=== PATIENT | male | born 1960 | race Caucasian/White ===

== ENCOUNTER → 2017-07-27 | Outpatient (REF) | payer BC ==
[~2017-07-27] MED LIST: ASPI1TAB PO; ATOR40TA75 PO; CYCL10TA PO; LISI2.5T76 PO; METO1TAB32 PO; OMEP20CA3 PO; PRED20TA PO
== END ==
LOC: M LAB REF 21:20
PROVIDERS: ATTEND Physician Assistant
DX: J02.9 Acute pharyngitis, unspecified (principal)

== ENCOUNTER → 2017-08-29 | Outpatient (CLI) | payer BC | LOC: M WUC 17:24 | DX: S61.301A Unspecified open wound of left index finger with damage to nail, initial encounter (principal); X58.XXXA Exposure to other specified factors, initial encounter; Y92.89 Other specified places as the place of occurrence of the external cause; Y93.89 Activity, other specified; Y99.8 Other external cause status | CPT/HCPCS: 73140 ==

== ENCOUNTER → 2018-09-03 | Outpatient (REF) | payer BC | LOC: M LAB REF 16:22 | PROVIDERS: ATTEND Nurse Practitioner Family | DX: R68.82 Decreased libido (principal) ==

== ENCOUNTER 2018-09-10 18:48 | Emergency (ER) | payer BC ==
[~2018-09-10] VITALS: Ht 177.8 cm; Wt 88.2 kg
[2018-09-10] MEDS ORDERED: NS 1,000 ML IV ONE (19:30)
[2018-09-10] MEDS ORDERED: GI COCKTAIL 50ML BTL(HYOSCYAMINE/MAALOX/LIDOCAINE VISCOUS)(1:3:1) PO ONE (19:30)
[2018-09-10] MEDS ORDERED: ASPIRIN 81 MG CHEW TABLET PO ONE (19:30)
[2018-09-10 19:38] LABS: BASO # 0.1 10^3/uL (0.0-0.2); BASO % 0.5 % (0.0-1.0); EOS # 0.1 10^3/uL (0.0-0.50); HEMATOCRIT 47.5 % (42.0-52.0); HEMOGLOBIN 16.8 g/dl (13.5-17.5); LYMPH # 3.4 10^3/uL (1.5-4.5); LYMPH % 30.6 % (24.0-44.0); MEAN CORPUSCULAR HEMOGLOBIN 30.3 pg (27.0-33.0); MEAN CORPUSCULAR HGB CONC 35.4 g/dl (32.0-36.5); MEAN CORPUSCULAR VOLUME 85.7 fl (80.0-96.0); MONO # 0.9 10^3/uL (0.0-0.8); MONO % 7.7 % (0.0-5.0); NEUTROPHILS # 6.6 10^3/uL (1.8-7.7); NEUTROPHILS % 59.7 % (36.0-66.0); PLATELET COUNT, AUTOMATED 273 10^3/uL (150-450); RED BLOOD COUNT 5.54 10^6/uL (4.30-6.10); WHITE BLOOD COUNT 11.1 10^3/uL (4.0-10.0)
[2018-09-10 19:48] LABS: INR 0.96; PROTHROMBIN TIME 12.9 SECONDS (12.1-14.4)
[2018-09-10 19:49] LABS: BLOOD UREA NITROGEN 20 MG/DL (7-18); CALCIUM LEVEL 8.7 MG/DL (8.5-10.1); CARBON DIOXIDE LEVEL 24 MEQ/L (21-32); CHLORIDE LEVEL 107 MEQ/L (98-107); CPK CREATINE PHOSPHOKINASE 104 U/L (39-308); CREATININE FOR GFR 1.07 MG/DL (0.70-1.30); GLOMERULAR FILTRATION RATE > 60.0 (>56); GLUCOSE, FASTING 116 MG/DL (70-100); MB/CK RELATIVE INDEX 1.63 (< OR =4); POTASSIUM SERUM 3.7 MEQ/L (3.5-5.1); SODIUM LEVEL 141 MEQ/L (136-145); TROPONIN I < 0.02 NG/ML (< 0.10)
[2018-09-10 20:03] VITALS: BP 145/88
--- NOTE | 2018-09-10 20:03 | REP ---
Portable chest x-ray: Single view. History: Chest pain. Comparison study: May 26, 2016. Findings: The patient is status post prior median sternotomy. There is a granulomatous calcification in the left apex. EKG electrodes are seen. The heart is not enlarged. The lung vinson are otherwise clear. The pleural angles are sharp. Pulmonary vasculature is not increased. Impression: No active disease. Electronically Signed by Brendan Masters MD 09/10/2018 07:54 P
--- NOTE | 2018-09-11 07:58 | ECGEPIP ---
Stationary ECG Study 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
== END 2018-09-10 20:17 | disposition home or self-care (01) ==
LOC: M ED 18:48
DX: B34.9 Viral infection, unspecified (principal); I10 Essential (primary) hypertension; I25.10 Atherosclerotic heart disease of native coronary artery without angina pectoris; Z79.899 Other long term (current) drug therapy; Z79.82 Long term (current) use of aspirin

== ENCOUNTER 2019-09-02 21:10 | Emergency (ER) | payer BC ==
[~2019-09-02] VITALS: Ht 177.8 cm; Wt 88.6 kg
[~2019-09-02 21:10] MED LIST changes: -ASPI1TAB PO; +ASPI81TA26 PO; +OMEP-172 PO; -OMEP20CA3 PO
[2019-09-02 21:11] VITALS: BP 150/83
== END 2019-09-03 00:56 | disposition home or self-care (01) ==
LOC: M ED 21:10
DX: S61.442A Puncture wound with foreign body of left hand, initial encounter (principal); S60.512A Abrasion of left hand, initial encounter; W26.8XXA Contact with other sharp object(s), not elsewhere classified, initial encounter; Y92.099 Unspecified place in other non-institutional residence as the place of occurrence of the external cause; Y93.89 Activity, other specified; Y99.9 Unspecified external cause status; I25.2 Old myocardial infarction; I10 Essential (primary) hypertension; Z87.891 Personal history of nicotine dependence; Z79.82 Long term (current) use of aspirin; Z79.899 Other long term (current) drug therapy

== ENCOUNTER 2020-03-17 14:45 | Inpatient (IN) | payer BC ==
[~2020-03-17] VITALS: Ht 177.8 cm; Wt 85.3 kg
[~2020-03-17 14:45] MED LIST changes: +CYCL-707 PO; -CYCL10TA PO; -OMEP-172 PO; +OMEP1CAP73 PO
[2020-03-17] MEDS ORDERED: NS 1,000 ML IV SCH (15:31)
[2020-03-17 16:13] LABS: VENOUS BASE EXCESS -0.9 (-2.0-2.0); VENOUS O2 SATURATION 93.7 % (60.0-80.0); VENOUS PARTIAL PRESSURE CO2 41.1 mmHg (38.0-50.0); VENOUS PARTIAL PRESSURE O2 67.1 mmHg (30.0-50.0); VENOUS PH 7.385 UNITS (7.330-7.430); VENOUS STANDARD HCO3 23.6 MEQ/L; VENOUS TOTAL CO2 25.3 MEQ/L (24.0-28.0)
[2020-03-17 16:17] LABS: BASO # 0.1 10^3/uL (0.0-0.2); BASO % 0.6 % (0.0-1.0); EOS # 0.1 10^3/uL (0.0-0.5); EOS % 0.9 % (0.0-3.0); HEMATOCRIT 45.4 % (42.0-52.0); LYMPH # 1.8 10^3/uL (1.5-5.0); LYMPH % 20.3 % (24.0-44.0); MEAN CORPUSCULAR HEMOGLOBIN 27.5 pg (27.0-33.0); MEAN CORPUSCULAR VOLUME 83.2 fl (80.0-96.0); MONO # 0.6 10^3/uL (0.0-0.8); MONO % 6.4 % (0.0-5.0); NEUTROPHILS # 6.4 10^3/uL (1.5-8.5); NEUTROPHILS % 71.6 % (36.0-66.0); PLATELET COUNT, AUTOMATED 207 10^3/uL (150-450); RED BLOOD COUNT 5.46 10^6/uL (4.30-6.10); WHITE BLOOD COUNT 8.9 10^3/uL (4.0-10.0)
[2020-03-17] MEDS ORDERED: ACETAMINOPHEN TAB 650MG DOSE (2X325MG) PO PRN (16:45)
[2020-03-17 16:48] LABS: ACETAMINOPHEN LEVEL < 2.0 UG/ML (10.0-30.0); ALBUMIN 3.9 GM/DL (3.2-5.2); ALT/SGPT 38 U/L (12-78); BILIRUBIN,DIRECT 0.2 MG/DL (0.0-0.2); BILIRUBIN,TOTAL 0.7 MG/DL (0.2-1.0); BLOOD UREA NITROGEN 19 MG/DL (7-18); CALCIUM LEVEL 8.6 MG/DL (8.5-10.1); CARBON DIOXIDE LEVEL 26 MEQ/L (21-32); CHLORIDE LEVEL 109 MEQ/L (98-107); CK-MB VALUE MASS 2.2 NG/ML (<3.6); CPK CREATINE PHOSPHOKINASE 227 U/L (39-308); CREATININE FOR GFR 1.07 MG/DL (0.70-1.30); ETHYL ALCOHOL (ETHANOL) < 0.003 % (0.000-0.010); GLOMERULAR FILTRATION RATE > 60.0 (>56); GLUCOSE, FASTING 101 MG/DL (70-100); MB/CK RELATIVE INDEX 0.97 (< OR =4); POTASSIUM SERUM 3.8 MEQ/L (3.5-5.1); SALICYLATE LEVEL < 1.7 MG/DL (5.0-30.0); SODIUM LEVEL 143 MEQ/L (136-145); TOTAL PROTEIN 7.2 GM/DL (6.4-8.2); TROPONIN I < 0.02 NG/ML (< 0.10)
[2020-03-17] MEDS ORDERED: LISI2.5T2 PO (16:53)
[2020-03-17] MEDS ORDERED: OMEP10CA78 PO (16:53)
--- NOTE | 2020-03-17 17:07 | HPEPDOC ---
General Date of Admission 03/17/20 Date of Service: Mar 17, 2020 Chief Complaint The patient is a 59-year-old male admitted with a reason for visit of High B/P. Source: Patient Exam Limitations: No limitations Timing/Duration: 4-6 hours Severity: Mild History of Present Illness Patient is 59 years old male with past history of triple cardiac bypass, hyperlipidemia, hypertension presented to the hospital with altered mental status. Patient stated that around 5-6 hours ago he developed slight mental confusion, with short term memory problem and some difficulties to express his thoughts associated with bilateral paresthesia in his arms. His to blood pressure and it was slightly elevated 156/80. Patient denied any similar symptoms before. Patient denied any focal weakness, numbness. In emergency room patient was found to have negative head CT. patient denies fever, chills, nausea, vomiting, diarrhea or dysuria. When I saw patient NIH score 0 Home Medications Scheduled Aspirin (Aspirin EC) 81 Mg Tab, 162 MG PO DAILY, (Reported) Atorvastatin Calcium (Atorvastatin Calcium) 40 Mg Tab, 40 MG PO QPM, (Reported) Lisinopril (Lisinopril) 2.5 Mg Tab, 2.5 MG PO QPM, (Reported) Omeprazole (Omeprazole) 20 Mg Cap, 20 MG PO Q2D, (Reported) Allergies Coded Allergies: No Known Allergies (Unverified , 05/26/16) Past Medical History Medical History triple cardiac bypass, hyperlipidemia, hypertension, [place] Surgical History triple cardiac bypass Family History Father had cardiac bypass and coronary artery diseases Social History * Smoker: Denies Alcohol: Denies Drugs: denies A-FIB/CHADSVASC A-FIB History Current/History of A-Fib/PAF?: No Current PO Anticoag Therapy: No Review of Systems Constitutional: Denies: Chills, Fever Eyes: Denies: Pain, Vision change ENT: Denies: Head Aches, Ear Pain Skin: Denies: Rash, Lesions Pulmonary: Denies: Dyspnea Cardiovascular: Denies: Chest Pain, Palpitations Gastrointestinal: Denies: Nausea Genitourinary: Denies: Dysuria Hematologic: Denies: Bruising Endocrine: Denies: Polydipsia Musculoskeletal: Denies: Neck Pain Neurological: Reports: Confusion; Denies: Weakness Psych: Reports: Mood Normal Physical Examination General Exam: Positive: Alert, Cooperative Eye Exam: Positive: PERRLA ENT Exam: Positive: Atraumatic Neck Exam: Positive: Supple; Negative: JVD Chest Exam: Positive: Clear to auscultation Heart Exam: Positive: Rate Normal Telemetry: Positive: No significant arrhythmia Abdomen Exam: Positive: Normal bowel sounds Extremity Exam: Negative: Clubbing, Cyanosis Skin Exam: Positive: Nl turgor and temperature Neuro Exam: Positive: Strength at 5/5 X4 ext, Cranial Nerves 3-12 NL Psych Exam: Positive: Mental status NL, Oriented x 3, Other Vital Signs Vital Signs Date Time Temp Pulse Resp B/P (MAP) Pulse Ox O2 Delivery O2 Flow Rate FiO2 03/17/20 16:06 153/93 (113) 03/17/20 16:00 79 95 03/17/20 14:47 98.4 20 Room Air Laboratory Data Labs 24H Laboratory Tests 2 03/17/20 15:31: Blood Gas Bicarbonate Standard 23.6, Venous Blood pH 7.385, Venous Blood Partial Pressure CO2 41.1, Venous Blood Partial Pressure O2 67.1H, Venous Blood Total Carbon Dioxide 25.3, Venous Blood HCO3 24.0, Venous Blood Oxygen Saturation 93.7H, Venous Blood Base Excess -0.9 03/17/20 16:01: Anion Gap 8, Glomerular Filtration Rate > 60.0, Calcium Level 8.6, Total Bilirubin 0.7, Direct Bilirubin 0.2, Aspartate Amino Transf (AST/SGOT) 24, Alanine Aminotransferase (ALT/SGPT) 38, Alkaline Phosphatase 79, Total Creatine Kinase 227, Creatine Kinase MB 2.2, Creatine Kinase MB Relative Index 0.97, Troponin I < 0.02, Total Protein 7.2, Albumin 3.9, Albumin/Globulin Ratio 1.2, Thyroid Stimulating Hormone (TSH) 1.430, Salicylates Level < 1.7L, Acetaminophen Level < 2.0L, Ethyl Alcohol Level < 0.003 03/17/20 16:04: Immature Granulocyte % (Auto) 0.2, Neutrophils (%) (Auto) 71.6H, Lymphocytes (%) (Auto) 20.3L, Monocytes (%) (Auto) 6.4H, Eosinophils (%) (Auto) 0.9, Basophils (%) (Auto) 0.6, Neutrophils # (Auto) 6.4, Lymphocytes # (Auto) 1.8, Monocytes # (Auto) 0.6, Eosinophils # (Auto) 0.1, Basophils # (Auto) 0.1, Nucleated Red Blood Cells % (auto) 0.0 03/17/20 16:37: CBC/BMP Laboratory Tests 03/17/20 16:01 03/17/20 16:04 Assessment/Plan Patient is 59 years old male with past history of triple cardiac bypass, hyperlipidemia, hypertension presented to the hospital with altered mental status. Patient stated that around 5-6 hours ago he developed slight mental confusion, with short term memory problem and some difficulties to express his thoughts associated with bilateral paresthesia in his arms. His to blood pressure and it was slightly elevated 156/80. Patient denied any similar symptoms before. Patient denied any focal weakness, numbness. In emergency room patient was found to have negative head CT. patient denies fever, chills, nausea, vomiting, diarrhea or dysuria. When I saw patient NIH score 0 Problems (1) Altered mental state Status: Acute Problem Text: Differential diagnosis included TIA, CVA, presyncope Patient has multiple risk factors for stroke including coronary artery diseases, hyperlipidemia, hypertension Will proceed with MRI and MRA, carotid artery ultrasound Consider neurological consult after imaging studies done continue aspirin and statin (2) Coronary artery disease Status: Chronic Problem Text: Continue home cardioprotective medication Plan / VTE VTE Prophylaxis Ordered?: Yes DEVYN MADDEN DO Mar 17, 2020 17:07
[2020-03-17 17:17] LABS: AMPHETAMINES LEVEL URINE NEGATIVE (NEGATIVE); BARBITURATES URINE NEGATIVE (NEGATIVE); BENZODIAZEPINES URINE NEGATIVE (NEGATIVE); CANNABINOIDS URINE NEGATIVE (NEGATIVE); COCAINE METABOLITE URINE NEGATIVE (NEGATIVE); METHADONE URINE NEGATIVE (NEGATIVE); OPIATES URINE NEGATIVE (NEGATIVE); PHENCYCLIDINE URINE NEGATIVE (NEGATIVE)
[2020-03-17] MEDS: NS 1,000 ML IV SCH (18:29)
--- NOTE | 2020-03-17 20:03 | REPVR ---
PROCEDURE INFORMATION: Exam: MR Head Without Contrast Exam date and time: 03/17/2020 7:30 PM Age: 59 years old Clinical indication: Altered mental status/memory loss; Confusion or disorientation; Patient HX: Sudden onset of confusion, bilateral weakness, tingling, that has since subsided, nki; Additional info: CVA TECHNIQUE: Imaging protocol: MR of the head without contrast. COMPARISON: CT Head without contrast 03/17/2020 2:57 PM FINDINGS: Brain: Mild chronic microvascular ischemic changes. No acute infarct. No hemorrhage. Ventricles: Normal. No ventriculomegaly. Bones/joints: Unremarkable. Sinuses: Normal as visualized. No acute sinusitis. Mastoid air cells: Normal as visualized. No mastoid effusion. Orbits: Unremarkable. Soft tissues: Unremarkable. IMPRESSION: No acute intracranial abnormality. Electronically signed by: Mark Billings On 03/17/2020 20:03:07 PM
--- NOTE | 2020-03-17 20:06 | REPVR ---
PROCEDURE INFORMATION: Exam: MR Angiogram Head Without Contrast, Arteries Exam date and time: 03/17/2020 7:30 PM Age: 59 years old Clinical indication: Cognitive deficit; Altered mental status; Patient HX: Sudden onset of confusion, bilateral weakness, tingling, that has since subsided, nki; Additional info: CVA TECHNIQUE: Imaging protocol: MR angiogram head without contrast. Exam focused on the arteries. 3D rendering: MIP and/or 3D reconstructed images were created by the technologist. COMPARISON: CT Head without contrast 03/17/2020 2:57 PM FINDINGS: Anterior cerebral arteries: Intracranial segment is patent with no significant stenosis. No aneurysm. Right internal carotid artery: Intracranial segment is patent with no significant stenosis. No aneurysm. Right middle cerebral artery: No occlusion or significant stenosis. No aneurysm. Right posterior cerebral artery: No occlusion or significant stenosis. No aneurysm. Right vertebral artery: No occlusion or significant stenosis. No aneurysm. Left internal carotid artery: Intracranial segment is patent with no significant stenosis. No aneurysm. Left middle cerebral artery: No occlusion or significant stenosis. No aneurysm. Left posterior cerebral artery: No occlusion or significant stenosis. No aneurysm. Left vertebral artery: No occlusion or significant stenosis. No aneurysm. Basilar artery: No occlusion or significant stenosis. No aneurysm. IMPRESSION: No acute abnormality. Electronically signed by: Mark Billings On 03/17/2020 20:06:14 PM
[2020-03-17 20:34] VITALS: BP 138/78
[2020-03-17] MEDS ORDERED: LISINOPRIL *2.5 MG* TAB PO SCH (21:00)
[2020-03-17] MEDS ORDERED: ASPIRIN 81 MG ENTERIC TAB PO SCH (21:00)
[2020-03-17] MEDS ORDERED: ATORVASTATIN 20 MG TAB PO SCH (21:00)
[2020-03-17 22:00] VITALS: BP 135/80
[2020-03-17] MEDS: HEPARIN SOD (PORCINE) 5000UNITS/ML VIAL (J1644 PER 1000UNITS) SC SCH (22:16)
[2020-03-17 22:17] VITALS: BP 138/78
--- NOTE | 2020-03-17 23:28 | REPVR ---
PROCEDURE INFORMATION: Exam: US Duplex Bilateral Extracranial Arteries Exam date and time: 03/17/2020 7:46 PM Age: 59 years old Clinical indication: Numbness / parasthesia; Bilateral; Additional info: Stroke TECHNIQUE: Imaging protocol: Real-time Duplex ultrasound scan of the bilateral carotid and vertebral arteries combining azevedo scale, color Doppler and spectral waveform analysis. Bilateral exam. COMPARISON: CT Head without contrast 03/17/2020 2:57 PM FINDINGS: Right common carotid artery: Unremarkable. No occlusion or stenosis. Waveforms are normal. Right internal carotid artery: Mild plaque in the proximal right internal carotid artery. High shown a No occlusion or stenosis. Waveforms are normal. Right ICA/CCA ratio: 0.6 Right external carotid artery: No stenosis in the origin. Right vertebral artery: Unremarkable. Antegrade flow. Left common carotid artery: Unremarkable. No occlusion or stenosis. Waveforms are normal. Left internal carotid artery: Mild plaque in the bulb and proximal left internal carotid artery. No occlusion or stenosis. Waveforms are normal. Left ICA/CCA ratio: 0.6 Left external carotid artery: No stenosis in the origin. Left vertebral artery: Unremarkable. Antegrade flow. IMPRESSION: Less than 50% stenosis of bilateral internal carotid arteries as per NASCET criteria. REFERENCES: SRU CRITERIA. The degree of internal carotid artery stenosis is based on criteria defined by the Society of Radiologists in Ultrasound (SRU). Normal is no stenosis. Mild is less than 50% stenosis. Moderate is 50-69% stenosis. Severe is greater than 69% stenosis to near occlusion. Near occlusion is a markedly narrowed lumen. Total occlusion is no detectable patent lumen. Electronically signed by: Mark Billings On 03/17/2020 23:27:48 PM
[2020-03-18] MEDS: NS 1,000 ML IV SCH ×2 (02:22→08:15)
[2020-03-18 06:00] VITALS: BP 135/80
[2020-03-18 06:35] LABS: HEMATOCRIT 43.4 % (42.0-52.0); HEMOGLOBIN 14.4 g/dl (13.5-17.5); MEAN CORPUSCULAR HEMOGLOBIN 28.3 pg (27.0-33.0); MEAN CORPUSCULAR HGB CONC 33.2 g/dl (32.0-36.5); MEAN CORPUSCULAR VOLUME 85.4 fl (80.0-96.0); PLATELET COUNT, AUTOMATED 194 10^3/uL (150-450); RED BLOOD COUNT 5.08 10^6/uL (4.30-6.10); WHITE BLOOD COUNT 6.5 10^3/uL (4.0-10.0)
[2020-03-18 07:00] LABS: BLOOD UREA NITROGEN 13 MG/DL (7-18); CALCIUM LEVEL 8.4 MG/DL (8.5-10.1); CARBON DIOXIDE LEVEL 27 MEQ/L (21-32); CHLORIDE LEVEL 110 MEQ/L (98-107); CREATININE FOR GFR 0.94 MG/DL (0.70-1.30); GLOMERULAR FILTRATION RATE > 60.0 (>56); GLUCOSE, FASTING 94 MG/DL (70-100); MAGNESIUM LEVEL 2.1 MG/DL (1.8-2.4); POTASSIUM SERUM 3.9 MEQ/L (3.5-5.1); SODIUM LEVEL 140 MEQ/L (136-145)
[2020-03-18] MEDS: HEPARIN SOD (PORCINE) 5000UNITS/ML VIAL (J1644 PER 1000UNITS) SC SCH (08:15)
--- NOTE | 2020-03-18 08:41 | ECGEPIP ---
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
--- NOTE | 2020-03-18 08:45 | REP ---
CT BRAIN WITHOUT CONTRAST: REASON: Confusion. TECHNIQUE: 4.5 mm contiguous transaxial sections were obtained from the skull base to the cerebral convexities with thin cuts through the posterior fossa without the administration of intravenous contrast. FINDINGS: The ventricles and sulci are consistent with the patient's age. There are no extra-axial fluid collections. There is no mass effect. The deep cerebral white matter is consistent with the patient's age. The orbital and petrous structures, cerebellopontine angles, and posterior fossa are unremarkable. The sella turcica, cavernous, and paracavernous structures are essentially unremarkable. The visualized portions of the paranasal sinuses and mastoid air cells are clear. Images of the skull base show no gross abnormality. IMPRESSION: Essentially unremarkable CT examination of the brain. Electronically Signed by Rio Oneal DO 03/18/2020 08:57 A
--- NOTE | 2020-03-18 16:46 | DS.PDOC ---
Discharge Summary General Date of Admission Mar 17, 2020 at 16:44 Date of Discharge 03/18/20 Discharge Summary PROCEDURES PERFORMED DURING STAY: [None]. ADMITTING DIAGNOSES: Altered mental state Coronary artery disease TIA DISCHARGE DIAGNOSES: Altered mental state Coronary artery disease TIA COMPLICATIONS/CHIEF COMPLAINT: Altered Mental Status. HISTORY OF PRESENT ILLNESS: .Patient is 59 years old male with past history of triple cardiac bypass, hyperlipidemia, hypertension presented to the hospital with altered mental status. Patient stated that around 5-6 hours ago he developed slight mental confusion, with short term memory problem and some difficulties to express his thoughts associated with bilateral paresthesia in his arms. His to blood pressure and it was slightly elevated 156/80. P atient denied any similar symptoms before. Patient denied any focal weakness, numbness. In emergency room patient was found to have negative head CT. patient denies fever, chills, nausea, vomiting, diarrhea or dysuria. When I saw patient NIH score 0 HOSPITAL COURSE: During hospital stay following issue addressed Altered mental state Differential diagnosis included TIA, CVA, presyncope Patient has multiple risk factors for stroke including coronary artery diseases, hyperlipidemia, hypertension Imaging study negative for stroke or bleed Follow-up with neurologist in the outpatient settings continue aspirin and statin DISCHARGE MEDICATIONS: Please see below. ALLERGIES: Please see below. PHYSICAL EXAMINATION ON DISCHARGE: VITAL SIGNS: Please see below. General Exam: Positive: Alert, Cooperative Eye Exam: Positive: PERRLA ENT Exam: Positive: Atraumatic Neck Exam: Positive: Supple; Negative: JVD Chest Exam: Positive: Clear to auscultation Heart Exam: Positive: Rate Normal Telemetry: Positive: No significant arrhythmia Abdomen Exam: Positive: Normal bowel sounds Extremity Exam: Negative: Clubbing, Cyanosis Skin Exam: Positive: Nl turgor and temperature Neuro Exam: Positive: Strength at 5/5 X4 ext, Cranial Nerves 3-12 NL Psych Exam: Positive: Mental status NL, Oriented x 3, Other LABORATORY DATA: Please see below. IMAGING: PROCEDURE INFORMATION: Exam: MR Angiogram Head Without Contrast, Arteries Exam date and time: 03/17/2020 7:30 PM Age: 59 years old Clinical indication: Cognitive deficit; Altered mental status; Patient HX: Sudden onset of confusion, bilateral weakness, tingling, that has since subsided, nki; Additional info: CVA TECHNIQUE: Imaging protocol: MR angiogram head without contrast. Exam focused on the arteries. 3D rendering: MIP and/or 3D reconstructed images were created by the technologist. COMPARISON: CT Head without contrast 03/17/2020 2:57 PM FINDINGS: Anterior cerebral arteries: Intracranial segment is patent with no significant stenosis. No aneurysm. Right internal carotid artery: Intracranial segment is patent with no significant stenosis. No aneurysm. Right middle cerebral artery: No occlusion or significant stenosis. No aneurysm. Right posterior cerebral artery: No occlusion or significant stenosis. No aneurysm. Right vertebral artery: No occlusion or significant stenosis. No aneurysm. Left internal carotid artery: Intracranial segment is patent with no significant stenosis. No aneurysm. Left middle cerebral artery: No occlusion or significant stenosis. No aneurysm. Left posterior cerebral artery: No occlusion or significant stenosis. No aneurysm. Left vertebral artery: No occlusion or significant stenosis. No aneurysm. Basilar artery: No occlusion or significant stenosis. No aneurysm. IMPRESSION: No acute abnormality. PROCEDURE INFORMATION: Exam: MR Head Without Contrast Exam date and time: 03/17/2020 7:30 PM Age: 59 years old Clinical indication: Altered mental status/memory loss; Confusion or disorientation; Patient HX: Sudden onset of confusion, bilateral weakness, tingling, that has since subsided, nki; Additional info: CVA TECHNIQUE: Imaging protocol: MR of the head without contrast. COMPARISON: CT Head without contrast 03/17/2020 2:57 PM FINDINGS: Brain: Mild chronic microvascular ischemic changes. No acute infarct. No hemorrhage. Ventricles: Normal. No ventriculomegaly. Bones/joints: Unremarkable. Sinuses: Normal as visualized. No acute sinusitis. Mastoid air cells: Normal as visualized. No mastoid effusion. Orbits: Unremarkable. Soft tissues: Unremarkable. IMPRESSION: No acute intracranial abnormality PROGNOSIS: Good ACTIVITY: [As tolerated]. DIET: Cardiac DISCHARGE PLAN: Follow-up with neurologist DISPOSITION: 01 Home, Self-Care. DISCHARGE INSTRUCTIONS: Monitor blood pressure DISCHARGE CONDITION: [Stable]. TIME SPENT ON DISCHARGE: Greater than 40 minutes. Vital Signs/I&Os Vital Signs Date Time Temp Pulse Resp B/P (MAP) Pulse Ox O2 Delivery O2 Flow Rate FiO2 03/18/20 06:00 97.4 69 16 135/80 (98) 98 Room Air I&O- Last 24 Hours up to 6 AM 03/18/20 06:00 Intake Total 2360 ml Output Total 400 ml Balance 1960 ml Laboratory Data Labs 24H Laboratory Tests 2 03/18/20 06:00: Nucleated Red Blood Cells % (auto) 0.0, Anion Gap 3L, Glomerular Filtration Rate > 60.0, Calcium Level 8.4L, Magnesium Level 2.1 CBC/BMP Laboratory Tests 03/18/20 06:00 Discharge Medications Scheduled Aspirin (Aspirin EC) 81 Mg Tab, 162 MG PO QHS, (Reported) Atorvastatin Calcium (Atorvastatin Calcium) 40 Mg Tab, 40 MG PO QHS, (Reported) Lisinopril (Lisinopril) 2.5 Mg Tablet, 2.5 MG PO QHS, (Reported) Omeprazole (Omeprazole) 10 Mg Capsule.dr, 10 MG PO QHS, (Reported) Allergies Coded Allergies: No Known Allergies (Unverified , 05/26/16) DEVYN MADDEN DO Mar 18, 2020 16:46
== END 2020-03-18 12:12 | disposition home or self-care (01) | DRG 47 ==
LOC: M ED 14:45 → M ED INP 16:44 → ENRESERV 19:16 → M MSPAV 20:34
PROVIDERS: ADMIT Internal Medicine; ATTEND Internal Medicine
DX: G45.9 Transient cerebral ischemic attack, unspecified (principal); I10 Essential (primary) hypertension; I25.10 Atherosclerotic heart disease of native coronary artery without angina pectoris; E78.5 Hyperlipidemia, unspecified; Z79.899 Other long term (current) drug therapy

== ENCOUNTER 2020-03-26 15:00 | Emergency (ER) | payer BC ==
[~2020-03-26 15:00] MED LIST changes: +LISI2.5T2 PO; +OMEP10CA78 PO
[2020-04-22 17:24] LABS: BLOOD UREA NITROGEN 15 MG/DL (7-18); CALCIUM LEVEL 9.3 MG/DL (8.5-10.1); CARBON DIOXIDE LEVEL 27 MEQ/L (21-32); CHLORIDE LEVEL 108 MEQ/L (98-107); CK-MB VALUE MASS 1.7 NG/ML (<3.6); CPK CREATINE PHOSPHOKINASE 227 U/L (39-308); GLOMERULAR FILTRATION RATE > 60.0 (>56); GLUCOSE, FASTING 92 MG/DL (70-100); MB/CK RELATIVE INDEX 0.75 (< OR =4); POTASSIUM SERUM 3.9 MEQ/L (3.5-5.1); SODIUM LEVEL 143 MEQ/L (136-145); TROPONIN I < 0.02 NG/ML (< 0.10)
[2020-05-04 03:11] LABS: BASO # 0.1 10^3/uL (0.0-0.2); EOS # 0.2 10^3/uL (0.0-0.5); EOS % 2.7 % (0.0-3.0); HEMATOCRIT 47.5 % (42.0-52.0); HEMOGLOBIN 15.9 g/dl (13.5-17.5); LYMPH # 2.1 10^3/uL (1.5-5.0); MEAN CORPUSCULAR HEMOGLOBIN 28.1 pg (27.0-33.0); MEAN CORPUSCULAR HGB CONC 33.5 g/dl (32.0-36.5); MEAN CORPUSCULAR VOLUME 84.1 fl (80.0-96.0); MONO # 0.5 10^3/uL (0.0-0.8); MONO % 7.3 % (0.0-5.0); NEUTROPHILS # 4.1 10^3/uL (1.5-8.5); NEUTROPHILS % 58.7 % (36.0-66.0); PLATELET COUNT, AUTOMATED 230 10^3/uL (150-450); RED BLOOD COUNT 5.65 10^6/uL (4.30-6.10)
--- NOTE | 2020-05-16 00:32 | ECGEPIP ---
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
--- NOTE | 2020-05-18 16:07 | ECGEPIP ---
SINUS RHYTHM RIGHT BUNDLE BRANCH BLOCK ABNORMAL ECG NO PRIOR DUE TO DOWNTIME SEE SCANNED DOWNTIME REPORT MTDD
[2020-06-12] MEDS ORDERED: BIOT1CAP2 PO (13:00)
[2020-06-12] MEDS ORDERED: FISH1000 PO (13:00)
== END 2020-03-26 22:50 | disposition home or self-care (01) ==
LOC: M ED 15:00
DX: G43.809 Other migraine, not intractable, without status migrainosus (principal); I65.21 Occlusion and stenosis of right carotid artery; I11.9 Hypertensive heart disease without heart failure; I25.2 Old myocardial infarction; Z79.899 Other long term (current) drug therapy; Z79.82 Long term (current) use of aspirin; F17.200 Nicotine dependence, unspecified, uncomplicated

== ENCOUNTER 2020-04-28 20:54 | Emergency (ER) | payer BC ==
[~2020-04-28] VITALS: Ht 177.8 cm; Wt 84.1 kg
[2020-04-28] MEDS ORDERED: LIDOCAINE 1% MDV 20ML VIAL SC ONE (21:30)
[2020-04-28] MEDS ORDERED: KEFL500C17 PO (21:59)
[2020-04-28 22:16] VITALS: BP 128/79
[2020-06-12] MEDS ORDERED: BIOT1CAP2 PO (13:00)
[2020-06-12] MEDS ORDERED: FISH1000 PO (13:00)
== END 2020-04-28 22:20 | disposition home or self-care (01) ==
LOC: M ED 20:54
DX: S61.011A Laceration without foreign body of right thumb without damage to nail, initial encounter (principal); Y92.009 Unspecified place in unspecified non-institutional (private) residence as the place of occurrence of the external cause; Y93.9 Activity, unspecified; Y99.9 Unspecified external cause status; Z79.82 Long term (current) use of aspirin; Z79.899 Other long term (current) drug therapy; Z95.1 Presence of aortocoronary bypass graft

== ENCOUNTER → 2021-06-25 | Outpatient (REF) | payer BC ==
[~2021-06-25] MED LIST changes: +BIOT1CAP2 PO; +FISH1000 PO; +KEFL500C17 PO; -LISI2.5T2 PO; +LISI2.5T9 PO
== END ==
LOC: M LAB REF 11:21
PROVIDERS: ATTEND Internal Medicine
DX: R68.82 Decreased libido (principal)

== ENCOUNTER → 2021-07-04 | Outpatient (CLI) | payer BC ==
--- NOTE | 2021-07-04 14:42 | REP ---
INDICATION: EPISODES OF CONFUSION COMPARISON: 03/17/2020. TECHNIQUE: Real-time ultrasound evaluation and duplex Doppler interrogation of the extracranial carotid vasculature is performed. FINDINGS: There is mild to moderate plaquing and narrowing in both carotid bulbs extending into the internal and external carotid arteries. Luminal narrowing is less than 50%. There is no evidence of hemodynamically significant stenosis of either internal carotid artery. Normal flow velocities are seen. The vertebral arteries demonstrate normal direction of flow. RIGHT LEFT Peak systolic velocity ICA 87.5 cm/s 64.2 cm/s End diastolic velocity ICA 33.8 cm/s 27.1 cm/s Peak systolic velocity CCA 89.2 cm/s 96.3cm/s Peak systolic velocity ECA 89.7 cm/s 86.6 cm/s ICA/CCA ratio 0.98 0.67 IMPRESSION: Bilateral luminal narrowing of the internal carotid arteries less than 50%. No evidence of hemodynamically significant stenosis. <Electronically signed by Heraclio Moura > 07/04/21 [id number]
== END ==
LOC: M RAD 13:05
PROVIDERS: ATTEND Internal Medicine
DX: R41.0 Disorientation, unspecified (principal)

== ENCOUNTER 2022-04-27 09:50 | Emergency (ER) | payer BC, OTHER ==
[~2022-04-27] VITALS: Ht 177.8 cm; Wt 85.5 kg
[~2022-04-27 09:50] MED LIST changes: -OMEP10CA78 PO; +OMEP1CAP71 PO
[2022-04-27] MEDS ORDERED: DERMABOND TOPICAL SKIN ADHESIVE TOP ONE (11:35)
[2022-04-27 11:47] VITALS: BP 127/89
== END 2022-04-27 11:50 | disposition home or self-care (01) ==
LOC: M ED 09:50
DX: S61.211A Laceration without foreign body of left index finger without damage to nail, initial encounter (principal); I25.10 Atherosclerotic heart disease of native coronary artery without angina pectoris; I25.2 Old myocardial infarction; I10 Essential (primary) hypertension; E78.5 Hyperlipidemia, unspecified; Z79.82 Long term (current) use of aspirin; Z79.899 Other long term (current) drug therapy

== ENCOUNTER → 2022-07-02 | Outpatient (CLI) | payer OTHER ==
[~2022-07-02] MED LIST changes: +GASTROGRAFIN SOLUTION 30ML (Q9963) As Ordered ONE; +ISOVUE-370 76% 100ML VIAL As Ordered ONE
== END ==
LOC: M RAD 11:58
PROVIDERS: ATTEND Physician Assistant Medical
DX: R10.11 Right upper quadrant pain (principal); R74.01 Elevation of levels of liver transaminase levels
CPT/HCPCS: 74177; Q9963; Q9967

== ENCOUNTER 2023-02-21 00:21 | Emergency (ER) | payer OTHER ==
[~2023-02-21] VITALS: Ht 177.8 cm; Wt 80.9 kg
[~2023-02-21 00:21] MED LIST changes: -GASTROGRAFIN SOLUTION 30ML (Q9963) As Ordered ONE; -ISOVUE-370 76% 100ML VIAL As Ordered ONE
[2023-02-21 00:57] LABS: BASO # 0.1 10^3/uL (0.0-0.2); BASO % 1.3 % (0.0-1.0); EOS # 0.4 10^3/uL (0.0-0.5); EOS % 3.8 % (0.0-3.0); HEMATOCRIT 46.8 % (42.0-52.0); HEMOGLOBIN 16.5 g/dl (13.5-17.5); LYMPH # 3.1 10^3/uL (1.5-5.0); LYMPH % 33.1 % (24.0-44.0); MEAN CORPUSCULAR HEMOGLOBIN 31.4 pg (27.0-33.0); MEAN CORPUSCULAR HGB CONC 35.3 g/dl (32.0-36.5); MEAN CORPUSCULAR VOLUME 89.1 fl (80.0-96.0); MONO # 0.9 10^3/uL (0.0-0.8); MONO % 9.2 % (2.0-8.0); NEUTROPHILS # 4.9 10^3/uL (1.5-8.5); NEUTROPHILS % 52.3 % (36.0-66.0); PLATELET COUNT, AUTOMATED 263 10^3/uL (150-450); RED BLOOD COUNT 5.25 10^6/uL (4.30-6.10); WHITE BLOOD COUNT 9.5 10^3/uL (4.0-10.0)
[2023-02-21 01:19] LABS: INR 0.86; PROTHROMBIN TIME 11.9 SECONDS (12.5-14.5)
[2023-02-21 01:21] LABS: LIPASE 94 U/L (12-53)
[2023-02-21 01:35] LABS: ALBUMIN 4.2 G/DL (3.2-5.2); ALKALINE PHOSPHATASE 176 U/L (46-116); ALT/SGPT 80 U/L (7.0-40); AST/SGOT 37 U/L (<34); BILIRUBIN,DIRECT 0.1 MG/DL (<0.4); BILIRUBIN,TOTAL 0.6 MG/DL (0.3-1.2); BLOOD UREA NITROGEN 17 MG/DL (9-23); CALCIUM LEVEL 9.8 MG/DL (8.3-10.6); CARBON DIOXIDE LEVEL 29 MMOL/L (20-31); CHLORIDE LEVEL 106 MMOL/L (98-107); CK-MB VALUE MASS 2.1 NG/ML (<3.6); CPK CREATINE PHOSPHOKINASE 263 U/L (46-171); CREATININE FOR GFR 0.99 MG/DL (0.70-1.30); GLOMERULAR FILTRATION RATE > 60.0 (>49); GLUCOSE, FASTING 107 MG/DL (74-106); MB/CK RELATIVE INDEX 0.79 (< OR =4); SODIUM LEVEL 141 MMOL/L (136-145); THYROID STIMULATING HORMONE 2.768 uIU/ML (0.55-4.78); TOTAL PROTEIN 6.9 G/DL (5.7-8.2)
[2023-02-21 02:25] LABS: CK-MB VALUE MASS 1.9 NG/ML (<3.6)
[2023-02-21 02:28] LABS: MB/CK RELATIVE INDEX 0.81 (< OR =4)
[2023-02-21 04:25] LABS: CK-MB VALUE MASS 1.1 NG/ML (<3.6)
[2023-02-21 04:27] LABS: MB/CK RELATIVE INDEX 0.51 (< OR =4)
[2023-02-21 04:51] VITALS: BP 150/78; TEMP 97.9; O2SAT 98
== END 2023-02-21 05:16 | disposition home or self-care (01) ==
LOC: M ED 00:21
DX: R07.9 Chest pain, unspecified (principal); I45.10 Unspecified right bundle-branch block; I10 Essential (primary) hypertension; K21.9 Gastro-esophageal reflux disease without esophagitis; E78.5 Hyperlipidemia, unspecified; Z86.79 Personal history of other diseases of the circulatory system; Z79.82 Long term (current) use of aspirin; Z79.02 Long term (current) use of antithrombotics/antiplatelets; Z79.811 Long term (current) use of aromatase inhibitors; Z79.899 Other long term (current) drug therapy

== ENCOUNTER → 2025-04-06 | Outpatient (REF) | payer OTHER ==
[2025-04-06 17:49] LABS: INR 0.91
== END ==
LOC: M LAB REF 17:24
PROVIDERS: ATTEND Internal Medicine
DX: H11.31 Conjunctival hemorrhage, right eye (principal)

== ENCOUNTER → 2025-05-16 | Outpatient (REF) | payer OTHER | LOC: M LAB REF 12:22 | PROVIDERS: ATTEND Internal Medicine | DX: Z01.84 Encounter for antibody response examination (principal) ==

== ENCOUNTER → 2025-06-26 | Outpatient (CLI) | payer OTHER | LOC: M RAD 07:40 | PROVIDERS: ATTEND Internal Medicine | DX: N28.1 Cyst of kidney, acquired (principal) ==